=== PATIENT | male | born 1990 | race Caucasian/White ===

== ENCOUNTER 2018-12-23 16:28 | Emergency (ER) | payer OTHER ==
[2018-12-23 16:39] VITALS: BP 122/70
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
== END 2018-12-23 17:02 | disposition home or self-care (01) ==
LOC: UCEAST 16:28
DX: T70.29XA Other effects of high altitude, initial encounter (principal); X58.XXXA Exposure to other specified factors, initial encounter; Z88.1 Allergy status to other antibiotic agents; F41.9 Anxiety disorder, unspecified; Y92.9 Unspecified place or not applicable; Y99.0 Civilian activity done for income or pay
CPT/HCPCS: 99211; G0463

== ENCOUNTER 2019-11-29 13:54 | Emergency (ER) | payer OTHER ==
--- OUTSIDE RECORDS SUMMARY | 2019-11-29 14:02 | XMS REPORT | Continuity of Care Document ---
:1990 External Reference #:[id number] Author Name Ck Joseph M.D. 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 Problems Description No Information Available Social History Type Date Description Comments Sex Unknown ETOH Use Rarely consumes alcohol Tobacco Use Start: Unknown Patient has never smoked Recreational Drug Use Current Drug User ANABOLIC STEROIDS Allergies, Adverse Reactions, Alerts Active Allergies Reaction Severity Comments Date Ceclor 04/01/2015 Medications Active Medications SIG Qnty Indications Ordering Date Provider BD 3ML Luer-Cary use with 30units N52.9 Ck Joseph 08/22/2019 Syringe/21G X 1" testosterone as MSigrid Jules directed 21G X 1" 3 ML Misc Testosterone 2 milliliters 20ml E29.1 Ck Joseph 09/29/2017 Cypionate intramuscular every M., M.D. 200mg/ml 1 week code f Solution N52.9 BD 3ML Luer-Cary use as directed 30units E29.1 Ck Joseph, 09/29/2017 Syringe/25G X 1" M.D. 25G X 1" 3 ML Misc Drysol use at at bedtime, 37.5units E72.59 Ck Joseph, 04/17/2017 20% Solution then wash off in in M.D. the morning L20.9 Xanax 1 tab by mouth three 60tabs F41.9 Ck Joseph, 02/09/2016 1mg Tablets times a day as M.DDhara needed F41.0 F41.9 Immunizations CPT Code Status Date Vaccine Lot # U-[id number] Given 08/10/2018 Influenza,Unspecified 90186 Given 06/09/2017 Flu Vaccine [id number] Given 07/01/2016 Flu Vaccine [id number] Given 07/17/2015 Flu Vaccine [id number] Given 07/02/2014 Flu Vaccine Vital Signs Date Vital Result Comment 10/03/2019 3:23pm BP Systolic 120 mmHg BP Diastolic 68 mmHg Height 71.5 inches 5'11.50" Weight 264.00 lb BMI (Body Mass Index) 36.3 kg/m2 Heart Rate 71 /min Respiratory Rate 16 /min 08/22/2019 4:00pm BP Systolic 126 mmHg BP Diastolic 65 mmHg Height 71.5 inches 5'11.50" Weight 266.00 lb BMI (Body Mass Index) 36.6 kg/m2 Heart Rate 78 /min Respiratory Rate 16 /min Results Description No Information Available Procedures Description No Information Available Medical Devices Description No Information Available Encounters Type Date Location Provider Dx Diagnosis Office Visit 10/03/2019 [facility] Ck Joseph E78.2 Mixed hyperlipidemia 3:45p Sigrid L20.9 Atopic dermatitis, unspecified G47.33 Obstructive sleep apnea (adult) (pediatric) J30.1 Allergic rhinitis due to pollen J30.9 Allergic rhinitis, unspecified L70.0 Acne vulgaris E05.90 Thyrotoxicosis, unsp without thyrotoxic crisis or storm N52.9 Male erectile dysfunction, unspecified R06.83 Snoring R35.1 Nocturia F33.9 Major depressive disorder, recurrent, unspecified F50.02 Anorexia nervosa, binge eating/purging type F41.0 Panic disorder [episodic paroxysmal anxiety] G47.00 Insomnia, unspecified F41.9 Anxiety disorder, unspecified E29.1 Testicular hypofunction Z79.899 Other fdc (current) drug therapy E55.9 Vitamin D deficiency, unspecified M54.5 Low back pain D17.1 Benign lipomatous neoplasm of skin, subcu of trunk Office Visit 08/22/2019 3:45p [facility] Ck Joseph E78.2 Mixed hyperlipidemia Sigrid Phelan L20.9 Atopic dermatitis, unspecified G47.33 Obstructive sleep apnea (adult) (pediatric) J30.1 Allergic rhinitis due to pollen J30.9 Allergic rhinitis, unspecified L70.0 Acne vulgaris E05.90 Thyrotoxicosis, unsp without thyrotoxic crisis or storm N52.9 Male erectile dysfunction, unspecified R06.83 Snoring R35.1 Nocturia F33.9 Major depressive disorder, recurrent, unspecified F50.02 Anorexia nervosa, binge eating/purging type F41.0 Panic disorder [episodic paroxysmal anxiety] G47.00 Insomnia, unspecified F41.9 Anxiety disorder, unspecified E29.1 Testicular hypofunction Z79.899 Other intermediate designer (current) drug therapy E55.9 Vitamin D deficiency, unspecified M54.5 Low back pain D17.1 Benign lipomatous neoplasm of skin, subcu of trunk Office Visit 07/16/2019 2:15p [facility] Jake, Ahmad E78.2 Mixed hyperlipidemia Sigrid Phelan L20.9 Atopic dermatitis, unspecified G47.33 Obstructive sleep apnea (adult) (pediatric) J30.1 Allergic rhinitis due to pollen J30.9 Allergic rhinitis, unspecified L70.0 Acne vulgaris E05.90 Thyrotoxicosis, unsp without thyrotoxic crisis or storm N52.9 Male erectile dysfunction, unspecified R06.83 Snoring R35.1 Nocturia F33.9 Major depressive disorder, recurrent, unspecified F50.02 Anorexia nervosa, binge eating/purging type F41.0 Panic disorder [episodic paroxysmal anxiety] G47.00 Insomnia, unspecified F41.9 Anxiety disorder, unspecified E29.1 Testicular hypofunction Z79.899 Other fdc (current) drug therapy E55.9 Vitamin D deficiency, unspecified M54.5 Low back pain D17.1 Benign lipomatous neoplasm of skin, subcu of trunk Office Visit 05/09/2019 3:00p [facility] Jake, Ahmad E78.2 Mixed hyperlipidemia Sigrid Phelan L20.9 Atopic dermatitis, unspecified G47.33 Obstructive sleep apnea (adult) (pediatric) J30.1 Allergic rhinitis due to pollen J30.9 Allergic rhinitis, unspecified L70.0 Acne vulgaris E05.90 Thyrotoxicosis, unsp without thyrotoxic crisis or storm N52.9 Male erectile dysfunction, unspecified R06.83 Snoring R35.1 Nocturia F33.9 Major depressive disorder, recurrent, unspecified F50.02 Anorexia nervosa, binge eating/purging type F41.0 Panic disorder [episodic paroxysmal anxiety] G47.00 Insomnia, unspecified F41.9 Anxiety disorder, unspecified E29.1 Testicular hypofunction Z79.899 Other fdc (current) drug therapy E55.9 Vitamin D deficiency, unspecified M54.5 Low back pain D17.1 Benign lipomatous neoplasm of skin, subcu of trunk Office Visit 04/15/2019 3:45p [facility] Grayson Price, E78.2 Mixed hyperlipidemia N.P. L20.9 Atopic dermatitis, unspecified G47.33 Obstructive sleep apnea (adult) (pediatric) J30.1 Allergic rhinitis due to pollen J30.9 Allergic rhinitis, unspecified L70.0 Acne vulgaris E05.90 Thyrotoxicosis, unsp without thyrotoxic crisis or storm N52.9 Male erectile dysfunction, unspecified R06.83 Snoring R35.1 Nocturia F33.9 Major depressive disorder, recurrent, unspecified F50.02 Anorexia nervosa, binge eating/purging type F41.0 Panic disorder [episodic paroxysmal anxiety] G47.00 Insomnia, unspecified F41.9 Anxiety disorder, unspecified E29.1 Testicular hypofunction Z79.899 Other intermediate designer (current) drug therapy E55.9 Vitamin D deficiency, unspecified M54.5 Low back pain D48.5 Neoplasm of uncertain behavior of skin Assessments Date Code Description Provider 10/03/2019 E78.2 Mixed hyperlipidemia Ck Joseph M.D. 10/03/2019 L20.9 Atopic dermatitis, unspecified Ck Joseph M.D. 10/03/2019 G47.33 Obstructive sleep apnea (adult) (pediatric) Ck Joseph M.D. 10/03/2019 J30.1 Allergic rhinitis due to pollen Ck Joseph M.D. 10/03/2019 J30.9 Allergic rhinitis, unspecified Ck Joseph M.D. 10/03/2019 L70.0 Acne vulgaris Ck Joseph M.D. 10/03/2019 E05.90 Thyrotoxicosis, unspecified without Ck Joseph M.D. thyrotoxic crisis or storm 10/03/2019 N52.9 Male erectile dysfunction, unspecified Ck Joseph M.D. 10/03/2019 R06.83 Snoring Ck Joseph M.D. 10/03/2019 R35.1 Nocturia Ck Joseph M.D. 10/03/2019 F33.9 Major depressive disorder, recurrent, Ck Joseph M.D. unspecified 10/03/2019 F50.02 Anorexia nervosa, binge eating/purging type Ck Joseph M.D. 10/03/2019 F41.0 Panic disorder [episodic paroxysmal anxiety] Ck Joseph M.D. 10/03/2019 G47.00 Insomnia, unspecified Ck Joseph M.D. 10/03/2019 F41.9 Anxiety disorder, unspecified Ck Joseph M.D. 10/03/2019 E29.1 Testicular hypofunction Ck Joseph M.D. 10/03/2019 Z79.899 Other intermediate designer (current) drug therapy Ck Joseph M.D. 10/03/2019 E55.9 Vitamin D deficiency, unspecified Ck Joseph M.D. 10/03/2019 M54.5 Low back pain Ck Joseph M.D. 10/03/2019 D17.1 Benign lipomatous neoplasm of skin and Ck Joseph M.D. subcutaneous tissue of trunk 09/30/2019 E78.2 Mixed hyperlipidemia Ck Joseph M.D. 09/30/2019 L20.9 Atopic dermatitis, unspecified Ck Joseph M.D. 09/30/2019 G47.33 Obstructive sleep apnea (adult) (pediatric) Ck Joseph M.D. 09/30/2019 J30.1 Allergic rhinitis due to pollen Ck Joseph M.D. 09/30/2019 J30.9 Allergic rhinitis, unspecified Ck Joseph M.D. 09/30/2019 L70.0 Acne vulgaris Ck Joseph M.D. 09/30/2019 E05.90 Thyrotoxicosis, unspecified without Ck Joseph M.D. thyrotoxic crisis or storm 09/30/2019 N52.9 Male erectile dysfunction, unspecified Ck Joseph M.D. 09/30/2019 R06.83 Snoring Ck Joseph M.D. 09/30/2019 R35.1 Nocturia Ck Joseph M.D. 09/30/2019 F33.9 Major depressive disorder, recurrent, Ck Joseph M.D. unspecified 09/30/2019 F50.02 Anorexia nervosa, binge eating/purging type Ck Joseph M.D. 09/30/2019 F41.0 Panic disorder [episodic paroxysmal anxiety] Ck Joseph M.D. 09/30/2019 G47.00 Insomnia, unspecified Ck Joseph M.D. 09/30/2019 F41.9 Anxiety disorder, unspecified Ck Joseph M.D. 09/30/2019 E29.1 Testicular hypofunction Ck Joseph M.D. 09/30/2019 Z79.899 Other intermediate designer (current) drug therapy Ck Joseph M.D. 09/30/2019 E55.9 Vitamin D deficiency, unspecified Ck Joseph M.D. 09/30/2019 M54.5 Low back pain Ck Joseph M.D. 09/30/2019 D17.1 Benign lipomatous neoplasm of skin and Ck Joseph M.D. subcutaneous tissue of trunk 08/22/2019 E78.2 Mixed hyperlipidemia Ck Joseph M.D. 08/22/2019 L20.9 Atopic dermatitis, unspecified Ck Joseph M.D. 08/22/2019 G47.33 Obstructive sleep apnea (adult) (pediatric) Ck Joseph M.D. 08/22/2019 J30.1 Allergic rhinitis due to pollen Ck Joseph M.D. 08/22/2019 J30.9 Allergic rhinitis, unspecified Ck Joseph M.D. 08/22/2019 L70.0 Acne vulgaris Ck Joseph M.D. 08/22/2019 E05.90 Thyrotoxicosis, unspecified without Ck Joseph M.D. thyrotoxic crisis or storm 08/22/2019 N52.9 Male erectile dysfunction, unspecified Ck Joseph M.D. 08/22/2019 R06.83 Snoring Ck Joseph M.D. 08/22/2019 R35.1 Nocturia Ck Joseph M.D. 08/22/2019 F33.9 Major depressive disorder, recurrent, Ck Joseph M.D. unspecified 08/22/2019 F50.02 Anorexia nervosa, binge eating/purging type Ck Joseph M.D. 08/22/2019 F41.0 Panic disorder [episodic paroxysmal anxiety] Ck Joseph M.D. 08/22/2019 G47.00 Insomnia, unspecified Ck Joseph M.D. 08/22/2019 F41.9 Anxiety disorder, unspecified Ck Joseph M.D. 08/22/2019 E29.1 Testicular hypofunction Ck Joseph M.D. 08/22/2019 Z79.899 Other fdc (current) drug therapy Ck Joseph M.D. 08/22/2019 E55.9 Vitamin D deficiency, unspecified Ck Joseph M.D. 08/22/2019 M54.5 Low back pain Ck Joseph M.D. 08/22/2019 D17.1 Benign lipomatous neoplasm of skin and Ck Joseph M.D. subcutaneous tissue of trunk 07/16/2019 E78.2 Mixed hyperlipidemia Ck Joseph M.D. 07/16/2019 L20.9 Atopic dermatitis, unspecified Ck Joseph M.D. 07/16/2019 G47.33 Obstructive sleep apnea (adult) (pediatric) Ck Joseph M.D. 07/16/2019 J30.1 Allergic rhinitis due to pollen Ck Joseph M.D. 07/16/2019 J30.9 Allergic rhinitis, unspecified Ck Joseph M.D. 07/16/2019 L70.0 Acne vulgaris Ck Joseph M.D. 07/16/2019 E05.90 Thyrotoxicosis, unspecified without Ck Joseph M.D. thyrotoxic crisis or storm 07/16/2019 N52.9 Male erectile dysfunction, unspecified Ck Joseph M.D. 07/16/2019 R06.83 Snoring Ck Joseph M.D. 07/16/2019 R35.1 Nocturia Ck Joseph M.D. 07/16/2019 F33.9 Major depressive disorder, recurrent, Ck Joseph M.D. unspecified 07/16/2019 F50.02 Anorexia nervosa, binge eating/purging type Ck Joseph M.D. 07/16/2019 F41.0 Panic disorder [episodic paroxysmal anxiety] Ck Joseph M.D. 07/16/2019 G47.00 Insomnia, unspecified Ck Joseph M.D. 07/16/2019 F41.9 Anxiety disorder, unspecified Ck Joseph M.D. 07/16/2019 E29.1 Testicular hypofunction Ck Joseph M.D. 07/16/2019 Z79.899 Other fdc (current) drug therapy Ck Joseph M.D. 07/16/2019 E55.9 Vitamin D deficiency, unspecified Ck Joseph M.D. 07/16/2019 M54.5 Low back pain Ck Joseph M.D. 07/16/2019 D17.1 Benign lipomatous neoplasm of skin and Ck Joseph M.D. subcutaneous tissue of trunk 05/09/2019 E78.2 Mixed hyperlipidemia Ck Joseph M.D. 05/09/2019 L20.9 Atopic dermatitis, unspecified Ck Joseph M.D. 05/09/2019 G47.33 Obstructive sleep apnea (adult) (pediatric) Ck Joseph M.D. 05/09/2019 J30.1 Allergic rhinitis due to pollen Ck Joseph M.D. 05/09/2019 J30.9 Allergic rhinitis, unspecified Ck Joseph M.D. 05/09/2019 L70.0 Acne vulgaris Ck Joseph M.D. 05/09/2019 E05.90 Thyrotoxicosis, unspecified without Ck Joseph M.D. thyrotoxic crisis or sto 05/09/2019 N52.9 Male erectile dysfunction, unspecified Ck Joseph M.D. 05/09/2019 R06.83 Snoring Ck Joseph M.D. 05/09/2019 R35.1 Nocturia Ck Joseph M.D. 05/09/2019 F33.9 Major depressive disorder, recurrent, Ck Joseph M.D. unspecified 05/09/2019 F50.02 Anorexia nervosa, binge eating/purging type Ck Joseph M.D. 05/09/2019 F41.0 Panic disorder [episodic paroxysmal anxiety] Ck Joseph M.D. 05/09/2019 G47.00 Insomnia, unspecified Jake, Ahmad M., M.D. 05/09/2019 F41.9 Anxiety disorder, unspecified Ck Joseph M.D. 05/09/2019 E29.1 Testicular hypofunction Ck Joseph M.D. 05/09/2019 Z79.899 Other intermediate designer (current) drug therapy Ck Joseph M.D. 05/09/2019 E55.9 Vitamin D deficiency, unspecified Ck Joseph M.D. 05/09/2019 M54.5 Low back pain Ck Joseph M.D. 05/09/2019 D17.1 Benign lipomatous neoplasm of skin and Ck Joseph M.D. subcutaneous tissue of trunk 04/15/2019 E78.2 Mixed hyperlipidemia Grayson Price N.P. 04/15/2019 L20.9 Atopic dermatitis, unspecified Grayson Price N.P. 04/15/2019 G47.33 Obstructive sleep apnea (adult) (pediatric) Grayson Prcie N.P. 04/15/2019 J30.1 Allergic rhinitis due to pollen Grayson Price N.PDhara 04/15/2019 J30.9 Allergic rhinitis, unspecified Grayson Price N.P. 04/15/2019 L70.0 Acne vulgaris Grayson Price N.P. 04/15/2019 E05.90 Thyrotoxicosis, unspecified without Grayson Price N.PDhara thyrotoxic crisis or sto 04/15/2019 N52.9 Male erectile dysfunction, unspecified Grayson Price, N.P. 04/15/2019 R06.83 Snoring Grayson Price N.P. 04/15/2019 R35.1 Nocturia Grayson Price N.P. 04/15/2019 F33.9 Major depressive disorder, recurrent, Grayson Price, N.P. unspecified 04/15/2019 F50.02 Anorexia nervosa, binge eating/purging type Grayson Price N.P. 04/15/2019 F41.0 Panic disorder [episodic paroxysmal anxiety] Grayson Price N.P. 04/15/2019 G47.00 Insomnia, unspecified Grayson Price N.P. 04/15/2019 F41.9 Anxiety disorder, unspecified Rasheeda Layne.PDhara 04/15/2019 E29.1 Testicular hypofunction Rasheeda Layne.P. 04/15/2019 Z79.899 Other fdc (current) drug therapy Joaquina LayneP. 04/15/2019 E55.9 Vitamin D deficiency, unspecified Rasheeda Layne.PDhara 04/15/2019 M54.5 Low back pain Rasheeda Layne.Candy. 04/15/2019 D48.5 Neoplasm of uncertain behavior of skin Grayson Price N.P. Plan of Treatment 10/03/2019 - Ck Joseph M.D.E78.2 Mixed hyperlipidemiaComments:DIET REVIEWED CONTINUE DIETWT LOSSF/U LAB FBWL20.9 Atopic dermatitis, unspecifiedComments:SKIN CARE INSTRUCTIONS LOTION OR BABY OIL 2-3 APPLICATION PER DAYUSE MOISTURIZING SOAPAVOID PROLONGED WATER EXPOSUREAVOID USING HOT WATER IN WGDEYZU11.33 Obstructive sleep apnea (adult) (pediatric)Comments:F/U WITH ENT PRNJ30.1 Allergic rhinitis due to pollenComments:INCREASE PO FLUID USE ANTIHISTAMINE PRN SECOND HAND SMOKING SHKEUGEKKE48.9 Allergic rhinitis, unspecifiedComments:INCREASE PO FLUID USE ANTIHISTAMINE PRN SECOND HAND SMOKING KNCMYAZCDM96.0 Acne vulgarisComments:SKIN CARE KCMLFNSXLSZH44.90 Thyrotoxicosis , unspecified without thyrotoxic crisis or stormComments:OBSERVE STABLE AND ASYMPTOMATICF/U LABN52.9 Male erectile dysfunction, unspecifiedComments: COUNCELLING AND TEACHING ON DIFEEERENT TREATMENT METHODS DUR YXICZOJU55.83 SnoringComments:OBSERVE FOR NOWWT LOSSR35.1 NocturiaComments:IMPROVED AND STABLE USE RX GIVEN F/U WITH IPGQUDNS46.9 Major depressive disorder, recurrent, unspecifiedComments:COUNCELLING AND REASSURANCE RELAXATION TECHNIQUES DISCUSSED COUNSELED RE: STRESSORS IN LIFEF50.02 Anorexia nervosa, binge eating/purging typeComments:COUNCELLING AND REASSURANCE EXTENDED RELAXATION TECHNIQUES DISCUSSED COUNSELED RE: STRESSORS IN LIFEF41.0 Panic disorder [episodic paroxysmal anxiety]Comments:COUNCELLING AND REASSURANCE RELAXATION TECHNIQUES DISCUSSEDCOUNSELED RE: STRESSORS IN LIFE DUR AXAHSOVJ37.00 Insomnia, unspecifiedComments:COUNCELLING AND REASSURANCE RELAXATION TECHNIQUES DISCUSSED COUNSELED RE: STRESSORS IN LIFE TYLENOLPM OR MOTRIN PM PRN DUR RGYRFDUZ76.9 Anxiety disorder, unspecifiedComments: COUNCELLING AND REASSURANCE RELAXATION TECHNIQUES DISCUSSEDCOUNSELED RE: STRESSORS IN LIFE AVOID ALLENERGY/HIGH CAFFEINE DRINKS DUR AVXEUOOW42.1 Testicular hypofunctionComments:CONTINUE RX COUNCELLING AND REASSURANCE DUR NLIVQLKX96.899 Other fdc (current) drug therapyComments:REVIEWED MEDICATIONS AND DIRECTIONS WITH PATIENT DUR CJZPXDJK91.9 Vitamin D deficiency, unspecifiedComments:INCREASE EXPOSURE TO SUNREVIEW OF DIETM54.5 Low back painComments:EXERCISE/HEAT /MESSAGEAVOID HEAVY LIFTING WT LOSSTYLENOL OR MOTRIN PRND17.1 Benign lipomatous neoplasm of skin and subcutaneous tissue of trunkComments:Ultrasound of BREAST 05/06/19NEGATIVE FOR MASSESOBSERVE Functional Status Description No Information Available Mental Status Description No Information Available Referrals Refer to Reason for Referral Status Appt Date Christian Trujillo MD Closed [address], [place] [address] [phone]
--- OUTSIDE RECORDS SUMMARY | 2019-11-29 14:02 | XMS REPORT | Continuity of Care Document ---
:1990 External Reference #:[id number] Author Name Ck Joseph M.D. 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 Problems Description No Information Available Social History [...] Vaccine Lot # U-[id number] Given 08/10/2018 Influenza,Unspecified [id number] Given 06/09/2017 Flu Vaccine [id number] Given 07/01/2016 Flu Vaccine [id number] Given 07/17/2015 Flu Vaccine [id number] Given 07/02/2014 Flu Vaccine Vital Signs Date Vital Result Comment 11/13/2019 8:13am BP Systolic 120 mmHg BP Diastolic 60 mmHg Height 71.5 inches 5'11.50" Weight 262.00 lb BMI (Body Mass Index) 36.0 kg/m2 Heart Rate 82 /min Respiratory Rate 16 /min 10/03/2019 3:23pm BP Systolic 120 mmHg BP Diastolic 68 mmHg Height 71.5 inches 5'11.50" Weight 264.00 lb BMI (Body Mass Index) 36.3 kg/m2 Heart Rate 71 /min Respiratory Rate 16 /min Results Description No Information Available Procedures Description No Information Available Medical Devices Description No Information Available Encounters Type Date Location Provider Dx Diagnosis Office Visit 11/13/2019 [facility] Ck Joseph E78.2 Mixed hyperlipidemia 8:15a [place] L20.9 Atopic dermatitis, unspecified G47.33 Obstructive sleep [...] disorder, unspecified E29.1 Testicular hypofunction 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 E55.9 Vitamin D deficiency, unspecified M54.5 Low back pain D17.1 Benign lipomatous neoplasm of skin, subcu of trunk Office Visit 10/03/2019 3:45p [facility] Ck Joseph E78.2 Mixed hyperlipidemia Sigrid [...] disorder, unspecified E29.1 Testicular hypofunction Z79.899 Other usp (current) drug therapy E55.9 Vitamin D deficiency, unspecified M54.5 Low back pain D17.1 Benign lipomatous neoplasm of skin, subcu of trunk Office Visit 08/22/2019 3:45p [facility] JakeCk E78.2 Mixed hyperlipidemia Sigrid Phelan L20.9 Atopic [...] disorder, unspecified E29.1 Testicular hypofunction Z79.899 Other usp (current) drug therapy E55.9 Vitamin D deficiency, unspecified M54.5 Low back pain D17.1 Benign lipomatous neoplasm of skin, subcu of trunk Office Visit 07/16/2019 2:15p [facility] Jake, Ahmad E78.2 Mixed hyperlipidemia Sigrid [...] disorder, unspecified E29.1 Testicular hypofunction Z79.899 Other usp (current) drug therapy E55.9 Vitamin D deficiency, unspecified M54.5 Low back pain D17.1 Benign lipomatous neoplasm of skin, subcu of trunk Assessments Date Code Description Provider 11/13/2019 E78.2 Mixed hyperlipidemia Ck Joseph M.D. 11/13/2019 L20.9 Atopic dermatitis, unspecified Ck Joseph M.D. 11/13/2019 G47.33 Obstructive sleep apnea (adult) (pediatric) Ck Joseph M.D. 11/13/2019 J30.1 Allergic rhinitis due to pollen Ck Joseph M.D. 11/13/2019 J30.9 Allergic rhinitis, unspecified Ck Joseph M.D. 11/13/2019 L70.0 Acne vulgaris Ck Joseph M.D. 11/13/2019 E05.90 Thyrotoxicosis, unspecified without Ck Joseph M.D. thyrotoxic crisis or storm 11/13/2019 N52.9 Male erectile dysfunction, unspecified Ck Joseph M.D. 11/13/2019 R06.83 Snoring Ck Joseph M.D. 11/13/2019 R35.1 Nocturia Ck Joseph M.D. 11/13/2019 F33.9 Major depressive disorder, recurrent, Ck Joseph M.D. unspecified 11/13/2019 F50.02 Anorexia nervosa, binge eating/purging type Ck Joseph M.D. 11/13/2019 F41.0 Panic disorder [episodic paroxysmal anxiety] Ck Joseph M.D. 11/13/2019 G47.00 Insomnia, unspecified Ck Joseph M.D. 11/13/2019 F41.9 Anxiety disorder, unspecified Ck Joseph M.D. 11/13/2019 E29.1 Testicular hypofunction Ck Joseph M.D. 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 11/13/2019 E55.9 Vitamin D deficiency, unspecified Ck Joseph M.D. 11/13/2019 M54.5 Low back pain Ck Joseph M.D. 11/13/2019 D17.1 Benign lipomatous neoplasm of skin and Ck Joseph M.D. subcutaneous tissue of trunk 10/03/2019 E78.2 Mixed hyperlipidemia Ck Joseph M.D. [...] hypofunction Ck Joseph M.D. 10/03/2019 Z79.899 Other usp (current) drug therapy Ck Joseph M.D. 10/03/2019 [...] hypofunction Ck Joseph M.D. 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 09/30/2019 E55.9 Vitamin D deficiency, unspecified Ck Joseph M.D. 09/30/2019 M54.5 Low back pain Ck Joseph M.D. 09/30/2019 D17.1 Benign lipomatous neoplasm of skin and Ck Joseph M.D. subcutaneous tissue of trunk 08/22/2019 E78.2 Mixed hyperlipidemia Ck Jsoeph M.D. 08/22/2019 L20.9 Atopic dermatitis, unspecified Ck [...] hypofunction Ck Joseph M.D. 08/22/2019 Z79.899 Other usp (current) drug therapy Ck Joseph M.D. 08/22/2019 [...] unspecified Ck Joseph M.D. 07/16/2019 R06.83 Snoring kC Joseph M.D. 07/16/2019 R35.1 Nocturia Ck Joseph M.D. 07/16/2019 F33.9 Major depressive disorder, recurrent, Ck Joseph M.D. unspecified 07/16/2019 F50.02 Anorexia nervosa, binge eating/purging type Ck Joseph M.D. 07/16/2019 F41.0 Panic disorder [episodic paroxysmal anxiety] Ck Joseph M.D. 07/16/2019 G47.00 Insomnia, unspecified Ck Joseph M.D. 07/16/2019 F41.9 Anxiety disorder, unspecified Ck Joseph M.D. 07/16/2019 E29.1 Testicular hypofunction Ck Joseph M.D. 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 07/16/2019 E55.9 Vitamin D deficiency, unspecified Ck Joseph M.D. 07/16/2019 M54.5 Low back pain Ck Joseph M.D. 07/16/2019 D17.1 Benign lipomatous neoplasm of skin and Ck Joseph M.D. subcutaneous tissue of trunk Plan of Treatment 11/13/2019 - Ck Joseph M.D.E78.2 Mixed hyperlipidemiaComments:DIET REVIEWED CONTINUE DIETWT LOSSF/U LAB FBWL20.9 Atopic dermatitis, unspecifiedComments:SKIN CARE INSTRUCTIONS LOTION OR BABY OIL 2-3 APPLICATION PER DAYUSE MOISTURIZING SOAPAVOID PROLONGED WATER EXPOSUREAVOID USING HOT WATER IN IRLYXMF06.33 Obstructive sleep apnea (adult) (pediatric)Comments:F/U WITH ENT PRNJ30.1 Allergic rhinitis due to pollenComments:INCREASE PO FLUID USE ANTIHISTAMINE PRN SECOND HAND SMOKING ZEUATBYBKG02.9 Allergic rhinitis, unspecifiedComments:INCREASE PO FLUID USE ANTIHISTAMINE PRN SECOND HAND SMOKING OYRNZVKLXN73.0 Acne vulgarisComments:SKIN CARE NBOQBTTUWTVF50.90 Thyrotoxicosis , unspecified without thyrotoxic crisis or stormComments:OBSERVE STABLE AND ASYMPTOMATICF/U LABN52.9 Male erectile dysfunction, unspecifiedComments: COUNCELLING AND TEACHING ON DIFEEERENT TREATMENT METHODS DUR EVTRIDAQ60.83 SnoringComments:OBSERVE FOR NOWWT LOSSR35.1 NocturiaComments:IMPROVED AND STABLE USE RX GIVEN F/U WITH EFBKAVOE32.9 Major depressive disorder, recurrent, unspecifiedComments:COUNCELLING AND REASSURANCE RELAXATION TECHNIQUES DISCUSSED COUNSELED RE: STRESSORS IN LIFEF50.02 Anorexia nervosa, binge eating/purging typeComments:COUNCELLING AND REASSURANCE EXTENDED RELAXATION TECHNIQUES DISCUSSED COUNSELED RE: STRESSORS IN LIFEF41.0 Panic disorder [episodic paroxysmal anxiety]Comments:COUNCELLING AND REASSURANCE RELAXATION TECHNIQUES DISCUSSEDCOUNSELED RE: STRESSORS IN LIFE DUR OKHHUBDK86.00 Insomnia, unspecifiedComments:COUNCELLING AND REASSURANCE RELAXATION TECHNIQUES DISCUSSED COUNSELED RE: STRESSORS IN LIFE TYLENOLPM OR MOTRIN PM PRN DUR HLCMBSMR78.9 Anxiety disorder, unspecifiedComments: COUNCELLING AND REASSURANCE RELAXATION TECHNIQUES DISCUSSEDCOUNSELED RE: STRESSORS IN LIFE AVOID ALLENERGY/HIGH CAFFEINE DRINKS DUR HVJSVDCI54.1 Testicular hypofunctionComments:CONTINUE RX COUNCELLING AND REASSURANCE DUR YKKWPDHN05.899 Other petroleum terminal plant operator (current) drug therapyComments:REVIEWED MEDICATIONS AND DIRECTIONS WITH PATIENT DUR MNDBWEID14.9 Vitamin D deficiency, unspecifiedComments:INCREASE EXPOSURE TO SUNREVIEW OF DIETM54.5 Low back painComments:EXERCISE/HEAT /MESSAGEAVOID HEAVY LIFTING WT LOSSTYLENOL OR MOTRIN PRND17.1 Benign lipomatous neoplasm of skin and subcutaneous tissue of trunkComments:Ultrasound of BREAST 05/06/19NEGATIVE FOR MASSESOBSERVE Functional Status Description No Information Available Mental Status Description No Information Available Referrals Description No Information Available
--- OUTSIDE RECORDS SUMMARY | 2019-11-29 14:02 | XMS REPORT | Continuity of Care Document ---
:1990 External Reference #:[id number] Author Name Scott Wheat M.D. 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 Problems Description No Information Available Social History Type Date Description Comments Sex Unknown Smokeless Tobacco 2006 Current Smokeless Tobacco User Chew one can per week ETOH Use Rare Use Of Alcohol Recreational Drug Use Has Used In Past Allergies, Adverse Reactions, Alerts Active Allergies Reaction Severity Comments Date Cefaclor Severe Swelling in throat 01/19/2018 Medications Active Medications SIG Qnty Indications Ordering Provider Date Alprazolam 1 po qd Unknown 1mg Tablets Immunizations Description No Information Available Vital Signs Date Vital Result Comment 11/26/2019 12:56pm Weight 256.00 lb Height 73 inches 6'1" BMI (Body Mass Index) 33.8 kg/m2 BP Systolic 144 mmHg BP Diastolic 71 mmHg Heart Rate 58 /min O2 % BldC Oximetry 99 % Body Temperature 97.8 F Pain Level 0 08/27/2019 4:30pm Weight 264.00 lb Height 73 inches 6'1" BMI (Body Mass Index) 34.8 kg/m2 BP Systolic 117 mmHg BP Diastolic 70 mmHg Heart Rate 66 /min O2 % BldC Oximetry 99 % Body Temperature 98.2 F Pain Level 0 Results Description No Information Available Procedures Description No Information Available Medical Devices Description No Information Available Encounters Type Date Location Provider Dx Diagnosis Office Visit 08/27/2019 Main Office Scott Wheat M.D. H93.12 Tinnitus, left ear 4:30p H90.42 Snsrnrl hear loss, uni, left ear, w unrestr hear cntra side Assessments Date Code Description Provider 08/27/2019 H93.12 Tinnitus, left ear Scott Wheat M.D. 08/27/2019 H90.42 Sensorineural hearing loss, unilateral, left Scott Wheat M.D. ear, with unrestricted hearing on the contralateral side Plan of Treatment No Information Available Functional Status Functional Condition Comment Date Status Glasses Active CONTACTS Active Mental Status Description No Information Available Referrals Description No Information Available
[2019-11-29 14:48] VITALS: BP 100/75
--- NOTE | 2019-11-29 15:06 | UC ---
[facility] HPI - HPI Summary HPI Summary: 29 yo male noticed a painless lesion on his tongue 2 weeks ago hx of chewing tabacco use no recent illlness or fevers no wt loss - History of Current Complaint Chief Complaint: UCGeneralIllness Stated Complaint: ORAL Time Seen by Provider: 11/29/19 14:55 Hx Obtained From: Patient Onset/Duration: Gradual Onset, Lasting Weeks Pain Intensity: 0 Pain Scale Used: 0-10 Numeric Alleviating Factor(s): Nothing Dental: 1 - ulcerative lesion right border of tongue - Allergies/Home Medications Allergies/Adverse Reactions: Allergies Allergy/AdvReac Type Severity Reaction Status Date / Time cefaclor [From [facility]] Allergy Swelling Verified 11/29/19 14:41 Of Face,Lips,& Throat Home Medications: Home Medications ALPRAZolam [Xanax] 1 mg PO ONCE PRN 12/23/18 [History Confirmed 11/29/19] PMH/Surg Hx/FS Hx/Imm Hx Previously Healthy: Yes - Surgical History Surgical History: None - Family History Known Family History: Negative: Cardiac Disease, Hypertension, Diabetes - Social History Alcohol Use: Occasionally Substance Use Type: None Smoking Status (MU): Never Smoked Tobacco Type: Smokeless Tobacco Review of Systems All Other Systems Reviewed And Are Negative: Yes Constitutional: Positive: Negative Skin: Positive: Negative Eyes: Positive: Negative ENT: Positive: Other - tongue lesion Respiratory: Positive: Negative Cardiovascular: Positive: Negative Gastrointestinal: Positive: Negative Genitourinary: Positive: Negative Motor: Positive: Negative Neurovascular: Positive: Negative Musculoskeletal: Positive: Negative Neurological/Mental Status: Positive: Negative Psychological: Positive: Negative Physical Exam Triage Information Reviewed: Yes Appearance: Well-Appearing, No Pain Distress, Well-Nourished Vital Signs: Initial Vital Signs Temp 98.1 F 11/29/19 14:41 Pulse 65 11/29/19 14:41 Resp 15 11/29/19 14:41 BP 100/75 11/29/19 14:41 Pulse Ox 97 11/29/19 14:41 Vital Signs Reviewed: Yes Eyes: Positive: Conjunctiva Clear ENT: Positive: Uvula midline, Other - tongue lesion as noted on image. Negative : Hearing grossly normal, Pharyngeal erythema, Nasal congestion, Nasal drainage , Tonsillar swelling, Tonsillar exudate, Trismus, Muffled voice, Hoarse voice Dental Exam: Normal Neck: Positive: Supple, Nontender, No Lymphadenopathy Respiratory: Positive: Lungs clear, Normal breath sounds, No respiratory distress, No accessory muscle use Cardiovascular: Positive: RRR, No Murmur Musculoskeletal: Positive: ROM Intact, No Edema Neurological: Positive: Alert Psychological Exam: Normal Skin Exam: Normal Dental Complaint Course/Dx - Differential Dx/Diagnosis Provider Diagnosis: Tongue lesion Discharge ED - Sign-Out/Discharge Documenting (check all that apply): Patient Departure All imaging exams completed and their final reports reviewed: No Studies - Discharge Plan Condition: Stable Disposition: HOME Referrals: Ck Joseph MD [Primary Care Provider] - Daniel Ballesteros MD [Medical Doctor] - As Soon As Possible (you can ask for a [place] appt) Additional Instructions: I suggest you get the lesion on your tongue seen by a specialist You can see your ENT or call Dr. Ballesteros for an appt This may need to be biopsied - Billing Disposition and Condition Condition: STABLE Disposition: Home
== END 2019-11-29 15:11 | disposition home or self-care (01) ==
LOC: UCCORT 13:54
DX: K14.8 Other diseases of tongue (principal); Z88.1 Allergy status to other antibiotic agents
CPT/HCPCS: 99211; G0463